=== PATIENT | female | born 1965 | race Caucasian/White ===

== ENCOUNTER → 2016-07-08 | Outpatient (CLI) | payer BC ==
--- NOTE | 2016-07-10 09:03 | KCIC ---
Bilateral digital screening mammograms with CAD: HISTORY Routine screening COMPARISON Comparison is made to previous examinations dated back to 10/29/2012. FINDINGS Breast density category C. The skin and nipples show no abnormalities. No abnormal lymph nodes are seen in the axilla. The breast parenchyma shows heterogeneous density. There appears to be some new nodularity suggested posterior centrally in the right breast seen on CC view. Recommend further evaluation with ultrasound. There are no other dominant masses, suspicious calcifications or architectural distortions. IMPRESSION Focal nodularity posterior centrally in the right breast seen on CC view. Recommend further evaluation with ultrasound. This study was interpreted with the benefit of Computerized Aided Detection (CAD). Mammography is not 100% sensitive in detecting breast cancer. Therefore, a self breast exam and a clinical breast exam are very important. A negative mammogram does not negate a clinically suspicious finding and should not result in a delay in biopsying a clinically suspicious abnormality. BI-RADS category 0: Incomplete. Ultrasound followup is recommended. This patient's information has been entered into a reminder system for the patient to be notified with the results of this examination and a target date for her next mammograms. Electronically signed by: Lissy Lowry MD (Jul 10, 2016 09:02:11)
== END | disposition home or self-care (01) ==
LOC: KCIC MAMMO 16:45
PROVIDERS: ATTEND Obstetrics & Gynecology
DX: Z12.31 Encounter for screening mammogram for malignant neoplasm of breast (principal)
CPT/HCPCS: G0202; 77067

== ENCOUNTER → 2016-07-12 | Outpatient (CLI) | payer BC ==
--- NOTE | 2016-07-12 10:27 | KCIC ---
Right breast ultrasound: Reason for examination: Nodularity on screening mammogram. Comparison is made to previous mammogram dated 07/08/2016. Ultrasound examination of the right breast was performed. Right breast implant is present. No discrete cystic or solid nodules are seen and there are no architectural distortions. There appear to be some very minimal fibrocystic changes. No abnormal lymph nodes are seen in the axilla. Impression: No suspicious abnormality evident in the right breast. Recommend revaluation with mammogram and ultrasound of the right breast in 6 months. BI-RADS category 3: Probably benign. This patient's information has been entered into a reminder system for the patient to be notified with the results of this examination and a target date for her next mammograms. Electronically signed by: Lissy Lowry MD (Jul 12, 2016 10:25:35)
== END | disposition home or self-care (01) ==
LOC: KCIC US 09:39
PROVIDERS: ATTEND Obstetrics & Gynecology
DX: R92.8 Other abnormal and inconclusive findings on diagnostic imaging of breast (principal); N63 Unspecified lump in breast
CPT/HCPCS: 76641

== ENCOUNTER → 2017-01-08 | Outpatient (CLI) | payer BC ==
--- NOTE | 2017-01-08 13:59 | KCIC ---
Right breast diagnostic digital mammograms: Reason for examination: Follow-up nodular density. Comparison is made to previous studies dated 07/08/2016 and 06/15/2015. The skin and nipple show no abnormalities. No abnormal axillary lymph nodes are seen. Breast implant remains present. The breast parenchyma is heterogeneously dense. (Breast density: Category C.) There continues to be small nodular parenchymal density posterior slightly lateral to the nipple line on the CC view probably at the 11:00 position measuring 7 mm in size with no associated calcification. There are no other dominant masses, suspicious calcifications or architectural distortion. Impression: Continued presence of a small 7 mm nodular density in the posterior lateral right breast on CC view. Ultrasound to follow. Your patient's mammogram demonstrates that she has dense breast tissue (breast density category C or D), which could hide abnormalities, and if she has other risk factors for breast cancer that have been identified, she might benefit from supplemental screening tests that may be suggested by you as her ordering physician. Dense breast tissue, in and of itself, is a relatively common condition. Therefore, this information is not provided to cause undue concern, but rather to raise your awareness and to promote discussion with your patient regarding the presence of other risk factors, in addition to dense breast tissue. Your patient's mammography results will be sent to her. BI-RAD Category 0: Incomplete. Ultrasound to follow. Right breast ultrasound: Ultrasound examination was performed in the area of mammographic concern. Breast implant appears to be present and appears to be intact. In the 7:00 position 3 cm from the nipple and corresponding to the area of mammographic concern, there is a 7.3 x 3.5 mm hypoechoic nodule in parallel orientation which has appearance consistent with a probable fibroadenoma. There is no abnormal vascular flow seen. No other cystic or solid nodules are seen. IMPRESSION: Small 7.3 mm hypoechoic circumscribed lesion in parallel orientation at the 7:00 position which probably represents a fibroadenoma. Recommend continued 6 month sonographic follow-up. BI-RADS Category 3: Probably Benign. "Our facility is accredited by the [employer] Mammography Program." This patient's information has been entered into a reminder system for the patient to be notified with the results of her examination and a target date for the next mammogram. Electronically signed by: Eli Lowry MD (01/08/2017 1:55 PM) [id number]
== END | disposition home or self-care (01) ==
LOC: KCIC MAMMO 07:48
PROVIDERS: ATTEND Obstetrics & Gynecology
DX: R92.8 Other abnormal and inconclusive findings on diagnostic imaging of breast (principal)
CPT/HCPCS: 76641; G0206; 77065

== ENCOUNTER → 2017-07-15 | Outpatient (CLI) | payer BC | END | disposition home or self-care (01) | LOC: KCIC US 14:57 | DX: N63.10 Unspecified lump in the right breast, unspecified quadrant (principal) | CPT/HCPCS: 76641 ==

== ENCOUNTER → 2019-01-18 | Outpatient (CLI) | payer BC ==
--- NOTE | 2019-01-19 08:20 | KCIC ---
Bilateral digital screening mammograms and tomosynthesis Reason for examination: Routine screening. History of benign right breast biopsy 15 years ago. Comparison is made to previous study dated mammogram January 08, 2017, right breast ultrasound July 15, 2017 and priors Routine CC and MLO digital standard and implant displaced views with mammography and tomosynthesis obtained. Interpretation was made with the benefit of CAD. The skin and nipples show no abnormalities. No abnormal axillary lymph nodes are seen. The breast parenchyma is heterogeneously dense. (Breast density: Category C.) There are no suspicious calcifications. Bilateral subpectoral saline implants. Benign calcifications are present. Within the right retroareolar breast posterior depth adjacent of the implant is a biopsy clip. Only apparent on the right CC implant displaced, tomosynthesis image 11 within the outer breast 5 cm from the nipple is an asymmetry with possible architectural distortion. Impression: Possible right outer breast asymmetry with architectural distortion only apparent on the CC tomosynthesis images as described above. Further assessment with right diagnostic mammography with spot compression CC view and CC rolled views with tomosynthesis, and right breast sonography, is advised. ?Your patient's mammogram demonstrates that she has dense breast tissue (breast density category C or D), which could hide abnormalities, and if she has other risk factors for breast cancer that have been identified, she might benefit from supplemental screening tests that may be suggested by you as her ordering physician. Dense breast tissue, in and of itself, is a relatively common condition. Therefore, this information is not provided to cause undue concern, but rather to raise your awareness and to promote discussion with your patient regarding the presence of other risk factors, in addition to dense breast tissue. Your patient's mammography results will be sent to her. BI-RAD Category 0: Incomplete examination. Additional imaging advised. "Our facility is accredited by the [employer] Mammography [employer]." This patient's information has been entered into a reminder system for the patient to be notified with the results of her examination and a target date for the next mammogram. Electronically signed by: Saul Dunbar MD (01/19/2019 8:17 AM) [id number]
== END | disposition home or self-care (01) ==
LOC: KCIC MAMMO 17:37
PROVIDERS: ATTEND Internal Medicine
DX: Z12.31 Encounter for screening mammogram for malignant neoplasm of breast (principal); N64.89 Other specified disorders of breast
CPT/HCPCS: 77063; 77067

== ENCOUNTER → 2019-02-09 | Outpatient (CLI) | payer BC ==
--- NOTE | 2019-02-09 16:13 | KCIC ---
Right breast diagnostic digital mammograms: Reason for examination: Nodularity on screening mammogram. Comparison is made to mammographic exam dated 01/18/2019. [place] compression views were obtained in CC and lateral projections. There is dense fibroglandular tissue but there is suggestion of a small nodule in the upper outer quadrant. Further evaluation with ultrasound will follow. IMPRESSION: Small nodular density suggested in the dense parenchyma in the upper outer quadrant of the right breast. Ultrasound to follow. BI-RADS Category 0: Incomplete. Needs additional imaging evaluation. Right breast ultrasound: Ultrasound examination was performed of the right breast and axilla with special attention to the upper outer quadrant. Right breast implant is present and appears to be intact. At the 3:30 position 4.5 cm from the nipple, there is a small 3 mm benign-appearing fibrocystic lesion. In the 10:00 position 4 cm from the nipple, there is a 7.6 mm hypoechoic lesion is well-circumscribed and appears to lie in parallel orientation would be consistent with fibroadenoma. No other cystic or solid lesions are seen. No abnormal appearing lymph nodes are seen in the axilla. IMPRESSION: Benign-appearing nodular densities in the 3:30 and 10:00 positions. Recommend follow-up ultrasound in 6 months. BI-RADS Category 3: Probably Benign. "Our facility is accredited by the [employer] Mammography [employer]." This patient's information has been entered into a reminder system for the patient to be notified with the results of her examination and a target date for the next mammogram. Electronically signed by: Eli Lowry MD (02/09/2019 4:10 PM) [id number]
== END | disposition home or self-care (01) ==
LOC: KCIC MAMMO 12:44
PROVIDERS: ATTEND Internal Medicine
DX: N64.89 Other specified disorders of breast (principal); Z98.82 Breast implant status
CPT/HCPCS: 76641; 77065

== ENCOUNTER → 2019-08-10 | Outpatient (CLI) | payer BC ==
--- NOTE | 2019-08-10 08:30 | KCIC ---
EXAM: Right breast sonogram. HISTORY: 53-year-old female presents for follow-up evaluation of benign-appearing findings within the right breast on a sonogram dated 02/09/2019. TECHNIQUE: Sonographic imaging of the right breast was performed. COMPARISON: 02/09/2019. FINDINGS: There has been interval decrease in the size of a noncircumscribed hypoechoic lesion measuring 4.6 mm at the 10:00 position 4 cm from the nipple, previously measuring 7.6 mm. There is more circumscribed oval hypoechoic lesion at the 3:30 position 4.5 cm from the nipple measuring 2.5 mm, previously measuring 3.0 mm. No new lesion is seen. There are benign axillary lymph nodes. IMPRESSION: 1. Slight interval decrease in benign-appearing hypoechoic lesions measuring 4.6 mm at the 10:00 position and 3.0 mm at the 3:30 position. No new lesion is seen. 2. BI-RADS Category 3: Probably benign finding(s). Short term follow up with a right breast sonogram in 6 months is recommended. This follow up interval corresponds with the previously established bilateral mammography interval. Electronically signed by: Kim Toth MD (08/10/2019 8:27 AM) [id number]
== END | disposition home or self-care (01) ==
LOC: KCIC US 07:48
PROVIDERS: ATTEND Internal Medicine
DX: N64.89 Other specified disorders of breast (principal)
CPT/HCPCS: 76641

== ENCOUNTER → 2020-02-10 | Outpatient (CLI) | payer BC ==
--- NOTE | 2020-02-10 11:25 | KCIC ---
EXAM: Bilateral diagnostic mammogram; right breast sonogram. HISTORY: 54-year-old female presents for follow-up evaluation of suspected benign lesions within the right breast demonstrated on prior sonograms. The patient is due for bilateral mammography. TECHNIQUE: Full-field digital craniocaudal and mediolateral oblique standard and implant displaced views of both breasts are obtained for evaluation. Computer aided detection with clypdD software version 9.3 was applied. Sonographic imaging of the right breast including all 4 quadrants and the retroareolar region was performed. COMPARISON: Mammograms dated 02/09/2019, 01/18/2019 and 01/08/2017 and sonograms dated 08/10/2019, 02/09/2019, 07/15/2017 and 01/08/2017. BREAST PARENCHYMAL DENSITY: Level D - Extremely dense. FINDINGS: There is no new suspicious mass, microcalcification or region of architectural distortion. There are stable unremarkable breast implants. There is a biopsy clip within the right breast only seen on the mediolateral oblique projection. There are few punctate benign calcifications. Sonographic imaging of the right breast demonstrates a stable 5.6 mm oval circumscribed hypoechoic lesion at the 10:00 position 4 cm from the nipple. The year of stability when compared to an exam performed 02/09/2019 and the sonographic appearance favors a benign etiology such as a fibroadenoma. There is a 3 mm benign cyst or fibrocystic lesion at the 3:30 position 4.5 cm from the nipple. No new suspicious lesion is seen. IMPRESSION: 1. Stable 5.6 mm hypoechoic lesion at the 10:00 position of the right breast. The sonographic appearance and year of stability favors a benign etiology such as a fibroadenoma. There is also a tiny benign cyst or fibrocystic lesion at the 3:30 position of the right breast. There is no new suspicious sonographic finding within the right breast. 2. No new suspicious mammographic finding. 3. BI-RADS Category 2: Benign finding(s). RECOMMENDATION: Annual mammography is recommended. If your mammogram demonstrates that you have dense breast tissue, which could hide abnormalities, and if you have other risk factors for breast cancer that have been identified, you might benefit from supplemental screening tests that may be suggested by your ordering physician. Dense breast tissue, in and of itself, is a relatively common condition. This information is not provided to cause undue concern, but rather to raise your awareness and to promote discussion with your physician regarding the presence of other risk factors, in addition to dense breast tissue. A report of your mammography results will be sent to you and your physician. You should contact your physician if you have any questions or concerns regarding this report. Mammography is a sensitive method for finding small breast cancers, but it does not detect them all and is not a substitute for careful clinical examination. A negative mammogram does not negate a clinically suspicious finding and should not result in delay in biopsying a clinically suspicious abnormality. PQRS compliance statement - Patient information was entered into a reminder system with a target due date for the next mammogram. "Our facility is accredited by the [employer] Mammography [employer]." Electronically signed by: iKm Toth MD (02/10/2020 11:22 AM) [id number]
== END | disposition home or self-care (01) ==
LOC: KCIC MAMMO 08:11
PROVIDERS: ATTEND Internal Medicine
DX: R92.1 Mammographic calcification found on diagnostic imaging of breast (principal); Z98.82 Breast implant status
CPT/HCPCS: 76641; 77066

== ENCOUNTER → 2021-02-12 | Outpatient (CLI) | payer BC ==
--- NOTE | 2021-02-12 13:58 | KCIC ---
Bilateral digital screening mammograms: Reason for examination: Routine screening. Comparison is made to previous studies dated back to 06/15/2015. Interpretation was made with the benefit of CAD. The skin and nipples show no abnormalities. No abnormal axillary lymph nodes are seen. Bilateral sali ne breast implants remain present and appear to be intact. The breast parenchyma is heterogeneously d ense. (Breast density: Category C.) There are no dominant masses, suspicious calcifications or giovana ectural distortion. Biopsy clip remains present on the right. Impression: No evidence of malignancy. Recommend routine screening. Your patient's mammogram demonstrates that she has dense breast tissue (breast density category C or D), which could hide abnormalities, and if she has other risk factors for breast cancer that have bee n identified, she might benefit from supplemental screening tests that may be suggested by you as her ordering physician. Dense breast tissue, in and of itself, is a relatively common condition. Therefo re, this information is not provided to cause undue concern, but rather to raise your awareness and t o promote discussion with your patient regarding the presence of other risk factors, in addition to d ense breast tissue. Your patient's mammography results will be sent to her. BI-RAD Category 1: Negative. "Our facility is accredited by the [employer] Mammography [employer]." This patient's information has been entered into a reminder system for the patient to be notified wit h the results of her examination and a target date for the next mammogram. Electronically signed by: Eli Lowry MD (02/12/2021 1:56 PM) [email or web address]
== END ==
LOC: KCIC MAMMO 10:05
PROVIDERS: ATTEND Internal Medicine
DX: Z12.31 Encounter for screening mammogram for malignant neoplasm of breast (principal)
CPT/HCPCS: 77067